=== PATIENT | male | born 1985 | race Caucasian/White ===

== ENCOUNTER 2020-09-14 23:13 | Emergency (ER) | payer SELFPAY ==
[2020-09-14 23:19] VITALS: TEMP 98.6; BMI 31.6
[2020-09-15 01:36] LABS: BASO % 0.2 % (0-2.0); EOS % 0.9 % (0-4.5); HEMATOCRIT 35.8 % (35.4-49); HEMOGLOBIN 12.5 GM/dL (11.7-16.9); LYMPH % 16.7 % (8-40); MCH 33.5 pg (25.7-33.7); MEAN CELL VOLUME 95.8 fl (80-96); MEAN PLT VOLUME 7.2 fl (7.5-11.1); MONO % 12.1 % (3.8-10.2); NEUT % 70.1 % (42.8-82.8); PLATELET COUNT 334 K/MM3 (134-434); RBC 3.74 M/mm3 (4.00-5.60); RDW 13.3 % (11.9-15.9); WHITE BLOOD COUNT 11.7 K/mm3 (4.0-10.0)
[2020-09-15 01:58] LABS: CALCIUM 9.6 mg/dL (8.5-10.1)
[2020-09-15 01:59] LABS: ALBUMIN 3.8 g/dl (3.4-5.0); BLOOD UREA NITROGEN 10.4 mg/dL (7-18)
[2020-09-15 02:02] LABS: CREATININE 0.9 mg/dL (0.55-1.3)
[2020-09-15 02:03] LABS: BILIRUBIN,TOTAL 0.6 mg/dL (0.2-1)
[2020-09-15 02:04] LABS: TOT PROT 8.7 g/dl (6.4-8.2)
[2020-09-15 02:32] LABS: ERYTHROCYTE SEDIMENTATION RATE 82 mm/hr (0-10)
[2020-09-15 04:27] VITALS: BP 150/95; PULSE 98
== END 2020-09-15 04:30 | disposition home or self-care (01) ==
LOC: JER 23:13
DX: L03.116 Cellulitis of left lower limb (principal)
CPT/HCPCS: 36415; 73630-TC-LT; 80053; 85025; 85651; 86140; 87040; 93971-TC; 99285-25